=== PATIENT | male | born 1995 ===

== ENCOUNTER 2017-03-17 18:21 | Emergency (ER) | payer SELFPAY ==
[2017-03-17 18:29] VITALS: BMI 23.1
[2017-03-17 18:42] VITALS: O2SAT 100
--- NOTE | 2017-03-17 19:12 | C.PDOC ---
History Of Present Illness 21 year old male who presents to the ER with a complaint of digitally reproducible left chest discomfort for the past 1 day. 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 Denies any recent trauma. Time Seen by Provider: 03/17/17 19:01 Chief Complaint (Nursing): Chest Pain History Per: Patient History/Exam Limitations: no limitations Onset/Duration Of Symptoms: Days Current Symptoms Are (Timing): Still Present Associated Symptoms: denies: Nausea, Dyspnea, Diaphoresis Modifying Factors: None Alleviating Factors: None Recent travel outside of the [place]: No Past Medical History Reviewed: Historical Data, Nursing Documentation, Vital Signs Vital Signs: Last Vital Signs Temp 98.5 F 03/17/17 19:19 Pulse 87 03/17/17 19:19 Resp 18 03/17/17 19:19 BP 119/72 03/17/17 19:19 Pulse Ox 100 03/17/17 19:19 - Medical History PMH: No Chronic Diseases Surgical History: No Surg Hx Family History: States: Unknown Family Hx - Social History Hx Alcohol Use: No Hx Substance Use: Yes - Immunization History Hx Tetanus Toxoid Vaccination: No Hx Influenza Vaccination: No Hx Pneumococcal Vaccination: No Review Of Systems Constitutional: Negative for: Fever Cardiovascular: Positive for: Chest Pain. Negative for: Palpitations Respiratory: Negative for: Cough, Shortness of Breath Gastrointestinal: Negative for: Nausea, Vomiting Physical Exam - Physical Exam Appears: Non-toxic, No Acute Distress Skin: Normal Color, Warm, Dry Head: Atraumatic, Normacephalic Oral Mucosa: Moist Chest: Symmetrical, Tenderness (Digitally positionally to left mid clavicular line at the area of T3.) Cardiovascular: Rhythm Regular, No Murmur Respiratory: Normal Breath Sounds, No Rales, No Rhonchi, No Wheezing Gastrointestinal/Abdominal: Soft, No Tenderness Neurological/Psych: Oriented x3, Normal Speech, Normal Cognition ED Course And Treatment ECG: Interpreted By Me ECG Rhythm: Sinus Rhythm ECG Interpretation: Normal Rate From EC O2 Sat by Pulse Oximetry: 100 Pulse Ox Interpretation: Normal Progress Note: EKG ordered. Motrin administered. Medical Decision Making Medical Decision Making: digitally and positionally reproducable L anterior chest wall discomfort, no rash, normal EKG, clear lungs, c/w costochondritis. Disposition Doctor Will See Patient In The: Office Counseled Patient/Family Regarding: Studies Performed, Diagnosis - Disposition Referrals: [facility] [Outside] [place] [facility] [Outside] Disposition: HOME/ ROUTINE Disposition Time: 19:12 Condition: GOOD Additional Instructions: continue ice packs to the area 1/2 hour per hour, nothing hot. Motrin 600 mg every 6 hours as needed Pepcid 20 mg @ night to prevent stomach irritation from the Motrin No heavy lifting for 1 week Follow-up in our Clinic as needed. Instructions: Chest Wall Pain (ED) Forms: [facility] (Norwegian), Work Excuse - Clinical Impression Clinical Impression: Chest wall discomfort - Scribe Statement The provider has reviewed the documentation as recorded by the Scribe Provider Attestation: Lyndon Lisa All medical record entries made by the Scribe were at my direction and personally dictated by me. I have reviewed the chart and agree that the record accurately reflects my personal performance of the history, physical exam, medical decision making, and the department course for this patient. I have also personally directed, reviewed, and agree with the discharge instructions and disposition.
[2017-03-17 19:20] VITALS: BP 119/72; PULSE 87; RESP 18; TEMP 98.5
--- NOTE | 2017-03-29 13:48 | CARD ---
APPROVED REPORT EKG Measurement Heart [id number] <Conclusion> Normal sinus rhythm Nonspecific ST and T wave abnormality Abnormal ECG
== END 2017-03-17 19:20 | disposition home or self-care (01) ==
LOC: C.ER 18:21
DX: R07.89 Other chest pain (principal)

== ENCOUNTER 2017-04-12 16:36 | Emergency (ER) | payer OTHER ==
[2017-04-12 16:36] VITALS: BMI 23.1
[2017-04-12 17:00] VITALS: BP 114/68; PULSE 85; RESP 18; TEMP 98.6; O2SAT 98
[2017-04-12 17:40] LABS: RBC URINE 2 /hpf (0-3); URINE BILIRUBIN NEGATIVE (NEGATIVE); URINE BLOOD NEGATIVE (NEGATIVE); URINE COLOR Yellow (YELLOW); URINE GLUCOSE (UA) NORMAL (Normal); URINE KETONE NEGATIVE (NEGATIVE); URINE LEUKOCYTE ESTERASE NEG Leu/uL (Negative); URINE PROTEIN NEGATIVE (NEGATIVE); WBC URINE 1 /hpf (0-5)
--- NOTE | 2017-04-12 17:49 | C.PDOC ---
History Of Present Illness 21 yo male come in for evaluation of penile rash intermittent for past few months. Pt reports, rash is itchy at time, otherwise no other complaints. Pt denies fever, chills, sore throat, abd. pain, N/V, UTI sx, denies penile discharge, testicular pain or swelling, or lesion. Ambulate to Ed for evaluation , not in any apparent distress. Time Seen by Provider: 04/12/17 17:07 Chief Complaint (Nursing): Male Genitourinary History Per: Patient Onset/Duration Of Symptoms: Intermittent Episodes, Gradual Past Medical History Reviewed: Historical Data, Nursing Documentation, Vital Signs Vital Signs: Last Vital Signs Temp 98.6 F 04/12/17 17:00 Pulse 85 04/12/17 17:00 Resp 18 04/12/17 17:00 BP 114/68 04/12/17 17:00 Pulse Ox 98 04/12/17 17:56 - Medical History PMH: No Chronic Diseases Surgical History: No Surg Hx Family History: States: No Known Family Hx - Social History Hx Alcohol Use: No Hx Substance Use: Yes - Immunization History Hx Tetanus Toxoid Vaccination: No Hx Influenza Vaccination: No Hx Pneumococcal Vaccination: No Review Of Systems Except As Marked, All Systems Reviewed And Found Negative. Constitutional: Negative for: Fever, Chills Eyes: Negative for: Vision Change ENT: Negative for: Throat Pain, Throat Swelling Cardiovascular: Negative for: Chest Pain Respiratory: Negative for: Cough, Shortness of Breath, Wheezing Gastrointestinal: Negative for: Nausea, Vomiting, Abdominal Pain, Diarrhea Genitourinary: Positive for: Rash. Negative for: Dysuria, Frequency Musculoskeletal: Negative for: Neck Pain, Back Pain Skin: Negative for: Rash Neurological: Negative for: Weakness, Numbness, Altered Mental Status, Headache , Dizziness Physical Exam - Physical Exam Appears: Well, Non-toxic, No Acute Distress Skin: Normal Color, Warm, No Rash Nose: Normal Throat: No Erythema, No Exudate, No Drooling Neck: Supple Gastrointestinal/Abdominal: Soft, No Tenderness, No Distention, No Guarding Back: No CVA Tenderness Male Genital: No Testicular Tenderness, No Testicular Swelling, No Scrotal Swelling, No Circumcised, Other (scant erythematous rash around gland, no edema , no erythema, no phymosis or paraphysmosis. No penils discharges.) Extremity: Normal ROM, No Swelling Neurological/Psych: Oriented x3, Normal Speech ED Course And Treatment O2 Sat by Pulse Oximetry: 98 Pulse Ox Interpretation: Normal Progress Note: On re-eval, pt is afebrile, hemodynamicaly stable. No-toxic. Abd: benign, (-) guarding, (-) rebound. Bacl: (-) CVA tenderness. : exam c/ w mild balanitis, no testicular edema/erythema or tenderness, no penile discharges. UA results review and appears normal. GC proe- pending. Pt advised, ref. to f/u with Urology in 1-2 days for re-eval. reutrn to ED if any worsening or new changes. Disposition Counseled Patient/Family Regarding: Studies Performed, Diagnosis, Need For Followup, Rx Given - Disposition Referrals: [facility] [Outside] Fredy Brock MD [Staff Provider] - Disposition: HOME/ ROUTINE Disposition Time: 17:46 Condition: STABLE Additional Instructions: USE MEDICATION PRESCRIBED FOLLOW UP WITH UROLOGY IN 2-3 DAYS FOR RE-EVALUATION. RETURN TO ED IF ANY WORSENING OR NEW CHANGES. Prescriptions: Clotrimazole 1% Cream [Lotrimin 1%] 1 gm TP BID #1 cre Instructions: Balanitis (ED) Forms: [employer] (Bangladeshi) Print Language: DJIBOUTIAN - Clinical Impression Clinical Impression: Shekhar
== END 2017-04-12 17:55 | disposition home or self-care (01) ==
LOC: C.ER 16:36
DX: N48.1 Balanitis (principal)

== ENCOUNTER 2017-08-17 12:49 | Emergency (ER) | payer OTHER ==
[2017-08-17 12:50] VITALS: BMI 23.1
[2017-08-17 13:01] VITALS: BP 122/61; PULSE 87; RESP 20; TEMP 98.1; O2SAT 99
--- NOTE | 2017-08-17 13:58 | C.PDOC ---
History Of Present Illness 21 yo male come in for evaluation of discomfort on urination gradually developed for past 3 days. Pt admits, (+) sexual active w/o protection. Otherwise, pt denies fever, chills, recent illness, sore throat, abd. pain, V/D , back pain, hematuria, testicular pain or swelling, penile discharge or lesion. Ambulate to ED for evaluation, not in any apparent distress. Time Seen by Provider: 08/17/17 13:08 Chief Complaint (Nursing): Male Genitourinary History Per: Patient Past Medical History Reviewed: Historical Data, Nursing Documentation, Vital Signs Vital Signs: Last Vital Signs Temp 98.1 F 08/17/17 12:58 Pulse 87 08/17/17 12:58 Resp 20 08/17/17 12:58 BP 122/61 08/17/17 12:58 Pulse Ox 99 08/17/17 14:31 - Medical History PMH: No Chronic Diseases Surgical History: No Surg Hx Family History: States: Unknown Family Hx - Social History Hx Alcohol Use: No Hx Substance Use: Yes - Immunization History Hx Tetanus Toxoid Vaccination: No Hx Influenza Vaccination: No Hx Pneumococcal Vaccination: No Review Of Systems Except As Marked, All Systems Reviewed And Found Negative. Constitutional: Negative for: Fever, Chills ENT: Negative for: Throat Pain Respiratory: Negative for: Cough, Shortness of Breath Gastrointestinal: Negative for: Nausea, Vomiting, Abdominal Pain Genitourinary: Positive for: Dysuria, Frequency. Negative for: Incontinence, Hematuria, Penile Discharge, Scrotal Pain, Penile Pain Musculoskeletal: Negative for: Neck Pain, Back Pain Skin: Negative for: Rash Neurological: Negative for: Altered Mental Status Physical Exam - Physical Exam Appears: Well, Non-toxic, No Acute Distress Skin: Normal Color, Warm, Dry, No Rash Head: Normacephalic Eye(s): bilateral: PERRL Nose: No Flaring, No Discharge Oral Mucosa: Moist, No Drooling Tongue: Normal Appearing Lips: Normal Appearing Throat: No Erythema, No Drooling Neck: Supple Cardiovascular: Rhythm Regular Respiratory: No Decreased Breath Sounds, No Accessory Muscle Use, No Stridor, No Wheezing Gastrointestinal/Abdominal: Soft, No Tenderness, No Distention, No Guarding Back: No CVA Tenderness Male Genital: Other (pt refused) Extremity: Normal ROM, No Deformity, No Swelling Neurological/Psych: Oriented x3, Normal Speech ED Course And Treatment O2 Sat by Pulse Oximetry: 99 Pulse Ox Interpretation: Normal Progress Note: On re-evaluation, pt is afebrile, hemodynamicaly stable. Non- toxic. Tolerate po well in Ed. ENT: No acute findings. Neck: Supple, (-) JVD. Lungs: CTA B/L, BS equla B/L. Abd: benign, (-) guarding, (-) rebound. back: (-) CVA tenderness. UA results review (+) UTI. Dalia received STD prophy per requested. Pt advised to eoncourage partner to be checked and tx as well as need. Advised and ref. to f/u with Urology in 1-2 days for re-eavl. 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 RETURN TO ED IF ANY WORSENING OR NEW CHANGE.S Prescriptions: Doxycycline Hyclate [Doryx] 100 mg PO BID #14 cap Instructions: Nonspecific Urethritis in Men (ED) Forms: [facility] (Yoruba) - Clinical Impression Clinical Impression: Urethritis
[2017-08-17 14:23] LABS: URINE AMORPHOUS SEDIMENT RARE /ul (<OCC); URINE BILIRUBIN NEGATIVE (NEGATIVE); URINE BLOOD 1+ (NEGATIVE); URINE CLARITY Clear (Clear); URINE COLOR Yellow (YELLOW); URINE GLUCOSE (UA) NORMAL (Normal); URINE LEUKOCYTE ESTERASE 2+ Leu/uL (Negative); URINE NITRATE NEGATIVE (NEGATIVE); URINE PROTEIN NEGATIVE (NEGATIVE); URINE UROBILINOGEN NORMAL mg/dL (0.2-1.0)
[2017-08-17] MEDS ORDERED: cefTRIAXone (Rocephin) 250 mg Inj IM STA (14:33)
== END 2017-08-17 15:09 | disposition home or self-care (01) ==
LOC: C.ER 12:49
DX: N34.2 Other urethritis (principal)